=== PATIENT | female | born 1995 | race Caucasian/White ===

== ENCOUNTER 2021-11-06 12:15 | Inpatient (IN) | payer OTHER ==
[~2021-11-06] VITALS: Ht 162.6 cm; Wt 68.0 kg
[2021-11-13] MEDS ORDERED: PRENATAL TABLE1 EAC1 PO (13:28)
== END 2021-11-15 17:47 | disposition home or self-care (01) | DRG 805 ==
LOC: OB/GYN 11-10 12:15 → LDR 11-13 08:00 → OB/GYN 11-13 11:11
PROVIDERS: ADMIT Obstetrics & Gynecology; ATTEND Obstetrics & Gynecology
PROC: 10E0XZZ Delivery of Products of Conception, External Approach (ICD-10-PCS; principal; 2021-11-13)
PROC: 10907ZC Drainage of Amniotic Fluid, Therapeutic from Products of Conception, Via Natural or Artificial Opening (ICD-10-PCS; 2021-11-13)
PROC: 3E033VJ Introduction of Other Hormone into Peripheral Vein, Percutaneous Approach (ICD-10-PCS; 2021-11-13)
PROC: 4A1HXFZ Monitoring of Products of Conception, Cardiac Rhythm, External Approach (ICD-10-PCS; 2021-11-13)
DX: O48.0 Post-term pregnancy (principal); O98.52 Other viral diseases complicating childbirth; U07.1 COVID-19; Z37.0 Single live birth; O99.284 Endocrine, nutritional and metabolic diseases complicating childbirth; E03.8 Other specified hypothyroidism; Z3A.40 40 weeks gestation of pregnancy

== ENCOUNTER 2022-12-29 15:48 | Emergency (ER) | payer OTHER ==
[~2022-12-29] VITALS: Ht 264.2 cm; Wt 59.0 kg
[~2022-12-29 15:48] MED LIST: PRENATAL TABLE1 EAC1 PO
== END 2022-12-29 20:15 | disposition home or self-care (01) ==
LOC: ER 15:48
DX: K52.9 Noninfective gastroenteritis and colitis, unspecified (principal)